=== PATIENT | male | born 1950 | race Caucasian/White ===

== ENCOUNTER → 2016-07-07 | Outpatient (CLI) | payer MEDICARE, OTHER ==
--- NOTE | 2016-07-07 12:07 | CTL ---
EXAMINATION TYPE: CT Low Dose Lung DATE OF EXAM ORDERED: 07/07/2016 11:09 AM HISTORY: Personal history tobacco use. Lung cancer screening CT DLP: [address] CTDI: 2.41 mGy Automated exposure control for dose reduction was used. SCREENING VISIT: 1 COMPARISON: None TECHNIQUE: Low dose computed tomography scan was performed through the chest at 1 mm thick sections a nd reconstructed images in the coronal plane at mm thick sections. CT DIAGNOSTIC QUALITY: Satisfactory FINDINGS: LUNG NODULES: Present, detailed below: There is in the right lung a nodule with a size of 4 mm. Nodule Size in Millimeters mm was visualized with Nodule Type: Semisolid that is Nodule state: New in nature on image # CT Image slide number [id number]. LUNGS: COPD: Severity: None Fibrosis: Severity: None Lymph nodes: None Other findings: There is bronchial wall thickening which is diffuse. RIGHT PLEURAL SPACE: Effusion: None Calcification: None Thickening: None Pneumothorax: None LEFT PLEURAL SPACE: Effusion: None Calcification: None Thickening: None Pneumothorax: None HEART: Heart Size: Normal Coronary calcification: Present Pericardial effusion: None OTHER FINDINGS: Upper abdomen: Unremarkable Bony thorax: Suspect some findings of diffuse idiopathic skeletal hyperostosis Supraclavicular region: Unremarkable Other: IMPRESSION: Nodular density in the right lung may represent focal scar rather than true pulmonary nod ule. FOLLOW UP CT CHEST RECOMMENDATION: 3-[address] LUNG RAD: 3, probably benign
== END | disposition home or self-care (01) ==
LOC: RADCTMAIN 10:35
PROVIDERS: ATTEND Family Medicine
DX: Z12.2 Encounter for screening for malignant neoplasm of respiratory organs (principal); R91.8 Other nonspecific abnormal finding of lung field; F17.200 Nicotine dependence, unspecified, uncomplicated

== ENCOUNTER → 2017-08-26 | Outpatient (CLI) | payer MEDICARE ==
[2017-08-26 12:22] LABS: Basophils # (A) 0.1 k/uL (0-0.2); Basophils % (A) 1 %; Eosinophils # (A) 0.4 k/uL (0-0.7); Eosinophils % (A) 5 %; HGB 14.6 gm/dL (13.0-17.5); Lymphocytes # (A) 2.2 k/uL (1.0-4.8); Lymphocytes % (A) 26 %; MCH 29.7 pg (25.0-35.0); MCHC 32.5 g/dL (31.0-37.0); MCV 91.3 fL (80.0-100.0); Mean Platelet Volume 8.8; Monocytes # (A) 0.7 k/uL (0-1.0); Monocytes % (A) 8 %; Neutrophils # (A) 4.9 k/uL (1.3-7.7); Neutrophils % (A) 59 %; Platelet Count 306 k/uL (150-450); RBC 4.92 m/uL (4.30-5.90); WBC 8.3 k/uL (3.8-10.6)
[2017-08-26 12:33] LABS: Anion Gap 10 mmol/L; Blood Urea Nitrogen 10 mg/dL (9-20); Calcium 9.9 mg/dL (8.4-10.2); Carbon Dioxide 27 mmol/L (22-30); Chloride 105 mmol/L (98-107); Cholesterol 158 mg/dL (<200); Glucose 135 mg/dL (74-99); HDL Cholesterol 39 mg/dL (40-60); LDL Cholesterol,Calculated 70 mg/dL (0-99); Potassium 4.7 mmol/L (3.5-5.1); Sodium 142 mmol/L (137-145); Triglycerides 245 mg/dL (<150)
[2017-08-26 12:41] LABS: T4, Free (Free Thyroxine) 1.14 ng/dL (0.78-2.19)
[2017-08-26 12:55] LABS: PSA Annual Screen 1.62 ng/mL (0.00-4.00)
[2017-08-26 16:19] LABS: ALT 41 U/L (21-72); AST 25 U/L (17-59); Albumin 4.4 g/dL (3.5-5.0); Alkaline Phosphatase 57 U/L (38-126); Bilirubin, Delta 0.3 mg/dL (0.0-0.2); Total Bilirubin 0.3 mg/dL (0.2-1.3); Total Protein 7.1 g/dL (6.3-8.2)
== END | disposition home or self-care (01) ==
LOC: LABWHC1 11:36
PROVIDERS: ATTEND Family Medicine
DX: Z00.00 Encounter for general adult medical examination without abnormal findings (principal); E78.00 Pure hypercholesterolemia, unspecified; Z79.899 Other long term (current) drug therapy
CPT/HCPCS: 84439; 80061; 80048; 80076; 84443; 85025; 36415; G0103

== ENCOUNTER → 2017-08-26 | Outpatient (CLI) | payer MEDICARE, OTHER ==
--- NOTE | 2017-08-26 11:08 | CTL ---
EXAMINATION TYPE: CT Low Dose Lung DATE OF EXAM ORDERED: 08/26/2017 COMPARISON: 07/07/2016 HISTORY: . Low Dose CT Lung Screening IV CONTRAST USED: None. SCREENING VISIT: First visit COMPARISON: None. TECHNIQUE: Low dose computed tomography scan was performed through the chest at 1 millimeter thick se ctions and reconstructed images in the coronal plane at [address] DIAGNOSTIC QUALITY: Satisfactory FINDINGS: LUNG NODULES: Not presentLeft lung: no nodules identified.Right lung: no nodules identified. Previou sly noted nodule is not reproduced. LUNGS: COPD: Severity: None Fibrosis: Severity:None Lymph nodes: None Other findings: None RIGHT PLEURAL SPACE: Effusion: None Calcification: None Thickening: None Pneumothorax: None LEFT PLEURAL SPACE: Effusion: None Calcification: None Thickening: None Pneumothorax: None HEART: Heart Size: Mildly enlarged Coronary calcification: Mild Pericardial effusion: None OTHER FINDINGS: Upper abdomen: No significant abnormality Bony thorax: Degenerative changes Supraclavicular region: No significant abnormalityOther: No significant abnormalityI IMPRESSION: Negative FOLLOW UP CT CHEST RECOMMENDATION: Follow-up screening in one year CT LUNG RAD: 1 LUNG RAD CATEGORY 1
== END | disposition home or self-care (01) ==
LOC: RADCTMAIN 06:51
PROVIDERS: ATTEND Family Medicine
DX: Z12.2 Encounter for screening for malignant neoplasm of respiratory organs (principal); Z87.891 Personal history of nicotine dependence

== ENCOUNTER → 2019-10-05 | Outpatient (CLI) | payer MEDICARE ==
--- NOTE | 2019-10-06 20:00 | ECHOF ---
Referral Reason:I10 Hypertension, R01.1 Murmur MEASUREMENTS -------- HEIGHT: 172.7 cm WEIGHT: 77.1 kg BP: IVSd: 1.3 cm (0.6 - 1.1) LVIDd: 5.1 cm (3.9 - 5.3) LVPWd: 0.7 cm (0.6 - 1.1) IVSs: 1.2 cm LVIDs: 4.0 cm LVPWs: 1.1 cm LA Diam: 3.3 cm (2.7 - 3.8) RVIDd: 3.1 cm (< 3.3) LAESV Index (A-L): 19.40 ml/m Ao Diam: 3.0 cm (2.0 - 3.7) EPSS: 1.2 cm MV E El: 0.46 m/s MV DecT: 211 ms MV A El: 0.81 m/s MV E/A Ratio: 0.56 AV maxP.35 mmHg AV meanP.68 mmHg RAP: 5.00 mmHg RVSP: 32.00 mmHg MV EF SLOPE: 75.23 mm/s (70 - 150) MV EXCURSION: 23.95 mm (> 18.000) FINDINGS -------- Sinus rhythm. This was a technically good study. The left ventricular size is normal. There is mild concentric left ventricular hypertrophy. Overa ll left ventricular systolic function is normal with, an EF between 55 - 60 %. The right ventricle is normal in size. The left atrial size is normal. Normal LA size by volume 22+/-6 ml/m2. The right atrial size is normal. There is mild aortic stenosis present. Peak/mean gradient across the Aortic Valve is 20.35mmHg / 10 .68mmHg. Mild mitral annular calcification present. Mild mitral regurgitation is present. Mild tricuspid regurgitation present. Right ventricular systolic pressure is normal at < 35 mmHg. There is no pulmonic regurgitation present. The aortic root size is normal. There is no pericardial effusion. CONCLUSIONS -------- 1. The left ventricular size is normal. 2. There is mild concentric left ventricular hypertrophy. 3. Overall left ventricular systolic function is normal with, an EF between 55 - 60 %. 4. The right ventricle is normal in size. 5. The left atrial size is normal. 6. The right atrial size is normal. 7. There is mild aortic stenosis present. 8. Peak/mean gradient across the Aortic Valve is 20.35mmHg / 10.68mmHg. 9. Mild mitral annular calcification present. 10. Mild mitral regurgitation is present. 11. Mild tricuspid regurgitation present. 12. Right ventricular systolic pressure is normal at < 35 mmHg. OFFICE CLERK ASSISTANT: Sylvia Glass RDCS
== END | disposition home or self-care (01) ==
LOC: RADECHMAIN 11:51
PROVIDERS: ATTEND Family Medicine
DX: I08.1 Rheumatic disorders of both mitral and tricuspid valves (principal); R01.1 Cardiac murmur, unspecified
CPT/HCPCS: 93306

== ENCOUNTER → 2020-11-30 | Outpatient (CLI) | payer MEDICARE ==
[2020-11-30 16:18] LABS: African American GFR (CKD) >90 (>60 ml/min/1.73 sqM); Blood Urea Nitrogen 12 mg/dL (9-20); Non-African American GFR(CKD) 80 (>60 ml/min/1.73 sqM)
--- NOTE | 2020-12-02 06:58 | CT ---
EXAMINATION TYPE: CT chest w con DATE OF EXAM: 11/30/2020 COMPARISON: Prior low-dose lung screening CT 2017 and 2017 HISTORY: Pulmonary nodule, pt not reporting any issues CT DLP: 322.80 mGycm. Automated Exposure Control for Dose Reduction was Utilized. TECHNIQUE: CT scan of the thorax is performed following with IV Contrast, patient injected with 100 mL of Isovue 300. FINDINGS: LUNGS: Background mild to moderate underlying emphysematous change is redemonstrated. New Lateral ri ght upper lobe nodule with some spiculated and irregular margins measuring 1.8 x 0.7 cm axial image 1 7 corresponding to coronal image 66 and sagittal image 30 warrants follow-up. Tiny central opacity or scarring central right lower lobe axial image 41 is stable. No pleural effusion or pneumothorax is s een bilaterally. MEDIASTINUM: There are no new greater than 1 cm hilar or mediastinal lymph nodes. No cardiomegaly o r pericardial effusion is seen. Coronary artery calcification in the RCA distribution is redemonstra sherin OTHER: Tiny dependent gallstone axial image 69. No adrenal masses. Spine is straightened on sagittal images. IMPRESSION: Confirmation of suspicious lateral 1.8 x 0.7 cm new Right upper lobe nodule. Advise PET C T to further evaluate.
== END | disposition home or self-care (01) ==
LOC: RADCTMAIN 15:19
PROVIDERS: ATTEND Family Medicine
DX: R91.1 Solitary pulmonary nodule (principal)
CPT/HCPCS: 82565; 84520; 71260; 36415; Q9967

== ENCOUNTER → 2020-12-28 | Outpatient (CLI) | payer MEDICARE ==
--- NOTE | 2021-01-01 15:53 | PE ---
Nuclear medicine PET/CT HISTORY: R 91.8, lung nodule, initial Patient received 8.5 mCi F-18 FDG intravenously and delayed scanning was performed from the skull bas e to the mid thighs. Localization and attenuation correction CT scan was performed. Correlation to CT chest 11/30/2020 Chest and neck: There is no cervical or supraclavicular adenopathy. No mediastinal, axillary, or arnulfo r adenopathy. The peripheral lung nodule right upper lobe with some spiculated margin, pleural extens ion show some associated hypermetabolic uptake, SUV is 2.2. There is no pleural or pericardial effusi on. Coronary artery calcifications are present. ABDOMEN: There is no evident liver uptake, no adrenal mass or retroperitoneal adenopathy. There is no ascites. Aorta is aneurysmal measuring 5.6 cm, there is a retroaortic left renal vein. Prostate is e nlarged and shows associated calcification. Osseous structures show no suspicious uptake. Uptake along the bowel is felt likely to be physiologic . IMPRESSION: Pulmonary nodule shows suspicious uptake. Abdominal aortic aneurysm is present. Abdominal aortic aneurysm.
== END | disposition home or self-care (01) ==
LOC: RADPETMAIN 12:45
PROVIDERS: ATTEND Internal Medicine Critical Care Medicine
DX: R91.8 Other nonspecific abnormal finding of lung field (principal)
CPT/HCPCS: 78815; A9552

== ENCOUNTER → 2021-01-10 | Outpatient (CLI) | payer MEDICARE ==
[2021-01-10 13:34] LABS: Basophils # (A) 0.1 k/uL (0-0.2); Basophils % (A) 1 %; Eosinophils # (A) 0.2 k/uL (0-0.7); Eosinophils % (A) 2 %; HCT 42.8 % (39.0-53.0); HGB 13.6 gm/dL (13.0-17.5); Lymphocytes % (A) 22 %; MCH 30.2 pg (25.0-35.0); MCHC 31.8 g/dL (31.0-37.0); MCV 94.7 fL (80.0-100.0); Mean Platelet Volume 8.4; Monocytes # (A) 0.5 k/uL (0-1.0); Monocytes % (A) 5 %; Neutrophils # (A) 6.4 k/uL (1.3-7.7); Neutrophils % (A) 69 %; Platelet Count 389 k/uL (150-450); RBC 4.52 m/uL (4.30-5.90); RDW 13.6 % (11.5-15.5); WBC 9.3 k/uL (3.8-10.6)
[2021-01-10 13:43] LABS: INR 0.9 (<1.2); Partial Thromboplastin Time 24.6 sec (22.0-30.0); Prothrombin Time 9.8 sec (9.0-12.0)
[2021-01-10 13:52] LABS: African American GFR (CKD) >90 (>60 ml/min/1.73 sqM); Anion Gap 8 mmol/L; Blood Urea Nitrogen 9 mg/dL (9-20); Carbon Dioxide 28 mmol/L (22-30); Chloride 105 mmol/L (98-107); Glucose 97 mg/dL (74-99); Magnesium 2.1 mg/dL (1.6-2.3); Non-African American GFR(CKD) 88 (>60 ml/min/1.73 sqM); Potassium 4.9 mmol/L (3.5-5.1); Sodium 141 mmol/L (137-145)
== END | disposition home or self-care (01) ==
LOC: LABPAT 12:15
PROVIDERS: ATTEND Thoracic Surgery (Cardiothoracic Vascular Surgery)
DX: Z01.812 Encounter for preprocedural laboratory examination (principal); R91.1 Solitary pulmonary nodule
CPT/HCPCS: 36415; 80051; 82565; 82947; 83735; 84520; 85025; 85610; 85730; 86850; 86900; 86901; 93005

== ENCOUNTER 2021-01-17 08:30 | Inpatient (IN) | payer MEDICARE ==
[2021-01-11 14:23] VITALS: BMI 25.8
[2021-01-17] MEDS ORDERED: LIDOCAINE 1% (10MG/ML) FOR IV START INTRADERMA PRN (11:29)
[2021-01-17] MEDS ORDERED: ONDANSETRON 4 MG/2 ML VIAL IVP ONE (11:29)
[2021-01-17] MEDS ORDERED: HYDROmorphone 0.5 MG/0.5 ML SYRINGE IVP PRN (11:29)
[2021-01-17] MEDS ORDERED: DEXAMETHASONE SOD PHOSPHATE 4 MG/ML 1 ML VIAL IV ONE (11:29)
[2021-01-17] MEDS: LACTATED RINGERS 1,000 ML IV SCH ×2 (11:37→12:00)
[2021-01-17 12:08] LABS: Glucose,Whole Blood 120 mg/dL (75-99)
[2021-01-17] MEDS ORDERED: MIDAZOLAM 2 MG/2 ML VIAL IVP ONE (13:00)
[2021-01-17] MEDS ORDERED: NEOSTIGMINE 1 MG/ML 10 ML VIAL ONE (13:46)
[2021-01-17] MEDS ORDERED: MIDAZOLAM 2 MG/2 ML VIAL ONE (13:46)
[2021-01-17] MEDS ORDERED: SUCCINYLCHOLINE CHLORIDE 100 MG/5 ML SYR IV ONE (13:46)
[2021-01-17] MEDS ORDERED: SODIUM CHLORIDE 0.9% (PF) 10 ML VIAL ONE (13:46)
[2021-01-17] MEDS ORDERED: ROPIVACAINE 5 MG/ML 30 ML VIAL ONE (13:46)
[2021-01-17] MEDS ORDERED: fentaNYL (PF) 50 MCG/ML 2 ML AMP ONE (13:46)
[2021-01-17] MEDS ORDERED: ROCURONIUM 10 MG/ML (5 ML VIAL) IV ONE (13:46)
[2021-01-17] MEDS ORDERED: PROPOFOL 10 MG/ML 20 ML VIAL IV ONE (13:46)
[2021-01-17] MEDS ORDERED: GLYCOPYRROLATE 0.2 MG/ML 2 ML VIAL ONE (13:46)
[2021-01-17] MEDS ORDERED: LIDOCAINE 1% INJ 10MG/ML (20 ML MDV) ONE (13:46)
[2021-01-17] MEDS ORDERED: BUPIVACAINE (PF) 0.5% 30 ML VIAL SQ ONE (13:51)
--- NOTE | 2021-01-17 14:34 | P.OP ---
Date of Procedure: 01/17/21 Preoperative Diagnosis: Right upper lobe mass Postoperative Diagnosis: Same Procedure(s) Performed: Right thoracoscopy with wedge resection right upper lobe mass Anesthesia: GETA Surgeon: Sergey Cuellar Feather Renovator #1: Davon Almodovar Estimated Blood Loss (ml): 5 IV fluids (ml): 200 Pathology: other (Right upper lobe mass for culture and pathology) Condition: stable Disposition: PACU Indications for Procedure: 70-year-old male with right upper lobe mass which has increased in size on serial examinations. Wedge resection was recommended for diagnosis and possible treatment. It was recognized if this proves to be malignant that the patient would likely need lobectomy. Options for management were discussed and the patient wanted wedge resection. Operative Findings: Firm 1.5 cm mass in the right upper lobe not involving the pleural surface grossly. Wedged out with grossly negative margins. Description of Procedure: Patient was brought to the operating room, placed supine on the operating table, anesthetized and intubated with a double-lumen endotracheal tube. Tube was positioned with fiberoptic bronchoscopy and secured. Patient was turned in left lateral decubitus position and appropriately positioned. Right chest was sterilely prepped and draped. 3 one-inch incisions were made in the right chest. The right lung was deflated. The lung was explored with gentle palpation with a ring forceps. The lesion was identified. It was grasped and a clamp was used to compress the lung beneath the lesion. Multiple firings of an Endo MAURICE stapler were used to resect the lesion.'s was placed in an Endo Catch bag and brought out onto the field. It was cut on the back table and a portion sent for culture the remainder for pathology. 28 Lyons Swedish chest tube was placed through the anterior incision and positioned posterior apically. It was secured with 0 Ethibond suture. Was connected to a Pleur-evac and the lung was inflated under thoracoscopic visualization. Incisions were closed with layers of Vicryl suture. Half percent Marcaine was used for local anesthesia in the region of the incisions. Dry sterile dressings were applied. Patient was extubated and transferred to recovery in stable condition.
[2021-01-17 15:11] LABS: Glucose,Whole Blood 98 mg/dL (75-99)
--- NOTE | 2021-01-17 16:02 | XR ---
EXAMINATION TYPE: XR chest 1V portable DATE OF EXAM: 01/17/2021 COMPARISON: NONE HISTORY: Posterior VATS TECHNIQUE: Single frontal view of the chest is obtained. FINDINGS: Right-sided chest tube. Heart size normal. Bilateral subsegmental consolidation. Soft tiss ue emphysema. Diffuse osteopenia and arthropathy of the shoulders. Could not exclude a nodule the rig ht upper lobe. IMPRESSION: Chest tube with no sizable pneumothorax and bilateral areas of atelectasis or infiltrate .
[2021-01-17] MEDS ORDERED: ONDANSETRON 4 MG/2 ML VIAL IVP PRN (16:28)
[2021-01-17] MEDS ORDERED: IPRATROPIUM-ALBUTEROL 3 ML NEB IH PRN (16:28)
[2021-01-17] MEDS ORDERED: ACETAMINOPHEN TAB 325 MG TAB PO PRN (16:28)
[2021-01-17 16:43] LABS: Glucose,Whole Blood 111 mg/dL (75-99)
[2021-01-17] MEDS: IPRATROPIUM-ALBUTEROL 3 ML NEB IH SCH ×2 (16:57→20:40)
[2021-01-17] MEDS: KETOROLAC 30 MG/ML 1 ML VIAL IVP SCH ×2 (18:25→23:00)
[2021-01-17] MEDS: HEPARIN SODIUM,PORCINE/PF 5,000 UNIT/0.5 ML SYRINGE SQ SCH ×2 (18:26→22:59)
[2021-01-17] MEDS: traMADol 50 MG TAB PO SCH ×2 (18:26→23:00)
[2021-01-17] MEDS: ATORVASTATIN 40 MG TAB PO SCH (20:12)
[2021-01-17] MEDS: lisinopriL 5 MG TAB PO SCH (20:12)
[2021-01-17] MEDS: FENOFIBRATE 160 MG TAB PO SCH (20:12)
[2021-01-17] MEDS: ASPIRIN 81 MG PO SCH (20:12)
[2021-01-17] MEDS: metFORMIN 500 MG TAB PO SCH (20:12)
[2021-01-17] MEDS: PIOGLITAZONE 30 MG TAB PO SCH (20:13)
[2021-01-17 20:59] LABS: Glucose,Whole Blood 267 mg/dL (75-99)
[2021-01-17] MEDS ORDERED: NON FORMULARY DRUG (Sitagliptin Phos/Metformin Hcl [Janumet 50-1,000 Mg Tablet] 1 EACH Tab PO SCH (21:00)
[2021-01-18] MEDS: traMADol 50 MG TAB PO SCH ×2 (05:16→12:28)
[2021-01-18] MEDS: KETOROLAC 30 MG/ML 1 ML VIAL IVP SCH ×4 (05:16→23:41)
[2021-01-18 05:54] LABS: Basophils % (A) 0 %; Eosinophils # (A) 0.1 k/uL (0-0.7); Eosinophils % (A) 1 %; HCT 37.2 % (39.0-53.0); HGB 11.9 gm/dL (13.0-17.5); Lymphocytes # (A) 1.9 k/uL (1.0-4.8); Lymphocytes % (A) 15 %; MCH 30.3 pg (25.0-35.0); MCHC 32.1 g/dL (31.0-37.0); MCV 94.3 fL (80.0-100.0); Mean Platelet Volume 8.7; Monocytes # (A) 0.7 k/uL (0-1.0); Monocytes % (A) 6 %; Neutrophils # (A) 9.8 k/uL (1.3-7.7); Neutrophils % (A) 77 %; Platelet Count 287 k/uL (150-450); RBC 3.94 m/uL (4.30-5.90); RDW 13.6 % (11.5-15.5); WBC 12.8 k/uL (3.8-10.6)
[2021-01-18] MEDS: PANTOPRAZOLE 40 MG TABLET PO SCH (06:14)
[2021-01-18 06:15] LABS: Calcium 9.1 mg/dL (8.4-10.2); Potassium 4.1 mmol/L (3.5-5.1)
[2021-01-18] MEDS: SODIUM CHLORIDE 0.9% 1,000 ML IV SCH ×2 (06:16→12:12)
[2021-01-18 06:44] LABS: Glucose,Whole Blood 135 mg/dL (75-99)
[2021-01-18] MEDS: IPRATROPIUM-ALBUTEROL 3 ML NEB IH SCH ×4 (08:03→19:54)
[2021-01-18] MEDS ORDERED: NON FORMULARY DRUG (Vitamin B Complex [Vitamin B Complex] 1 EACH Capsule) PO SCH (09:00)
[2021-01-18] MEDS: LINAGLIPTIN 5 MG TABLET PO SCH (09:53)
[2021-01-18] MEDS: HEPARIN SODIUM,PORCINE/PF 5,000 UNIT/0.5 ML SYRINGE SQ SCH ×3 (09:53→23:42)
[2021-01-18] MEDS: metFORMIN 500 MG TAB PO SCH ×2 (09:53→19:59)
--- NOTE | 2021-01-18 10:34 | XR ---
EXAMINATION TYPE: XR chest 1V DATE OF EXAM: 01/18/2021 COMPARISON: Chest x-ray 01/17/2021 HISTORY: Status post VATS TECHNIQUE: Single frontal view of the chest is obtained. FINDINGS: Right-sided chest tube remains in place. There is minimal apical right pneumothorax noted. There are overlying artifacts. Patchy densities are present in the bilateral lungs. Cardiac mediasti nal silhouette is stable. IMPRESSION: Postprocedural changes as described, minimal pneumothorax, atelectasis
--- NOTE | 2021-01-18 11:20 | P.PN ---
Subjective Progress Note Date: 01/18/21 Principal diagnosis: Right upper lobe lung mass. Past medical history significant for [id number] diabetes mellitus, hypertension, hyperlipidemia, mild COPD with a preoperative FEV1 83% of predicted value and remote history of smoking dependence which he quit 2 years prior. POD #1 Right thoracoscopy with wedge resection right upper lobe lung mass. The patient was seen in follow-up today 01/18/2021 at his bedside on the cardiac stepdown unit. Currently he is lying in bed, is awake, alert and oriented 3 and is in no acute distress. He denies any complaints of shortness of breath and is complaining of some surgical type pain to his chest tube insertion site r ating his pain 3-4 out of 10 on the pain scale. Oxygen saturation are 94% on room air and he is achieving 2000 mL on his incentive spirometry. Remote telemetry showing normal sinus rhythm with bundle branch block heart rate 70 ppm. Right pleural chest tube remains in place to water seal. No air leak is present. Ringing thin serosanguineous drainage with 70 mL output in the last 8 hours and 130 mL output since surgery. Chest x-ray this morning shows a trace right apical pneumothorax. The patient is complaining of some urinary retention this morning and has use the urinal twice with 180 mL output the first time and 100 mL the second time. A bladder scan postvoid residual was completed which showed around 400 mL of urine. Objective - Vital Signs Vital signs: Vital Signs Temp 98.1 F 01/18/21 04:00 Pulse 72 01/18/21 08:18 Resp 18 01/18/21 04:00 BP 100/93 01/18/21 04:00 Pulse Ox 93 L 01/18/21 04:00 Intake & Output 01/17/21 01/18/21 01/18/21 18:59 06:59 18:59 Intake Total 740 Output Total 5 70 180 Balance 735 -70 -180 Weight 78 kg 77.4 kg Intake: IV 500 Oral 240 Output: Chest Tube Drainage 70 Chest Tube 70 Urine 180 Estimated Blood Loss 5 Other: Voiding Method Toilet Urinal # Voids 1 - Exam CONSTITUTIONAL: Sitting up to the bedside chair on the cardiac stepdown unit, appears comfortable, cooperative, no apparent acute distress. HEENT: Neck is supple, no JVD, no lymphadenopathy. RESPIRATORY: Lungs sounds essentially clear throughout, diminished to his bilateral bases and with few scattered crackles to his right lower lobe. Respirations are symmetrical and nonlabored. Currently on room air with oxygen saturations 94%. Able to achieve 2000 mL on his incentive spirometry. Strong cough. CARDIOVASCULAR: Regular rhythm and rate. S1 and S2 present, negative for S3, gallop or murmur. Palpable peripheral pulses bilaterally, no edema to his bilat eral lower extremities. No calf pain or tenderness noted. Knee-high sequential compression devices in place to his bilateral lower extremities. GASTROINTESTINAL: Abdomen soft, nontender, nondistended. Active bowel sounds present 4 quadrants. Tolerating diet. Passing flatus. No guarding or ri gidity. GENITOURINARY: 280 mL urine output in the last 8 hours. INTEGUMENTARY: Skin is warm and dry with no evidence of clubbing or cyanosis. Right chest thoracoscopy incisions clean, dry and approximated. No drainage or redness present. NEUROLOGIC: Cranial nerves II through XII intact. No focal deficits. MUSKULOSKELETAL: Able to move all extremities, strength equal bilaterally. PSYCHIATRIC: Alert and oriented to person place and time, appropriate affect, intact judgment and insight. INVASIVE LINES AND TUBES: Right pleural chest tube remains in place to water seal. No air leak is present. Draining thin serosanguineous drainage with 70 mL output last 8 hours and 130 mL output since surgery. - Allied health notes Allied health notes reviewed: nursing - Labs CBC & Chem 7: 01/18/21 05:43 01/18/21 05:43 Labs: Abnormal Lab Results - Last 24 Hours (Table) 01/17/21 01/17/21 01/17/21 Range/Units 12:01 16:25 20:29 WBC (3.8-10.6) k/uL RBC (4.30-5.90) m/uL Hgb (13.0-17.5) gm/dL Hct (39.0-53.0) % Neutrophils # (1.3-7.7) k/uL Sodium (137-145) mmol/L Glucose (74-99) mg/dL POC Glucose (mg/dL) 120 H 111 H 267 H (75-99) mg/dL 01/18/21 01/18/21 01/18/21 Range/Units 05:43 05:43 06:20 WBC 12.8 H (3.8-10.6) k/uL RBC 3.94 L (4.30-5.90) m/uL Hgb 11.9 L (13.0-17.5) gm/dL Hct 37.2 L (39.0-53.0) % Neutrophils # 9.8 H (1.3-7.7) k/uL Sodium 136 L (137-145) mmol/L Glucose 140 H (74-99) mg/dL POC Glucose (mg/dL) 135 H (75-99) mg/dL Microbiology - Last 24 Hours (Table) 01/17/21 14:30 Anaerobic Culture - Preliminary Lung - Right 01/17/21 14:30 Tissue Culture - Preliminary Lung - Right 01/17/21 14:30 Fungal Culture - Preliminary Lung - Right 01/17/21 14:30 Acid Fast Bacilli Culture - Preliminary Lung - Right - Imaging and Cardiology Chest x-ray: report reviewed, image reviewed Assessment and Plan Assessment: 1. Right upper lobe lung mass, status post right thoracoscopy wedge resection 2. Mild COPD with a preoperative FEV1 83% of predicted value 3. History of hypertension 4. History of hyperlipidemia 5. Ege-nhlfnyt-zglothmry diabetes mellitus 6. Remote history of tobacco dependence, smoking around 2 years ago Plan: 1. We will remove his right pleural chest tube today. 2. Encourage use of his incentive spirometry 10 times every hour while awake. 3. Encourage ambulation. Out of bed for all meals. 4. The bladder scan and straight cath for greater than 300 mL of postvoid residual. 5. Pain control per current when necessary orders. 6. Anticipate discharge home within the next 24 hours. 7. Pathology results remain pending, will continue to follow as an outpatient. 8. More recommendations to follow based on patient's clinical course. Time with Patient: Greater than 30
[2021-01-18 11:59] LABS: Glucose,Whole Blood 123 mg/dL (75-99)
--- NOTE | 2021-01-18 12:12 | P.CNPUL ---
History of Present Illness Consult date: 01/18/21 Requesting physician: Sergey Cuellar Reason for consult: other (Status post wedge resection of right upper lobe.) Chief complaint: Pulmonary nodule History of present illness: This is a 70-year-old white male, long-standing smoking history, quit smoking 2 years ago. Patient is at least 100 pack year smoker, patient was undergoing serial screening scans of the chest on outpatient basis, CT of the chest on November 30 and a PET scan of the chest on December 28 showed a 1.80.8 nodule in the right upper lobe. It was noted to be peripheral, PET scan demonstrated mild uptake at this area. There was no evidence of lymphadenopathy, and this was relatively new nodule. His PFT preoperatively showed FEV1 of 2.49 which is 83% of predicted, and his DLCO was 97% of the predicted. Patient underwent wedge resection of the right upper lobe nodule, the feeling that the patient most likely has bronchogenic carcinoma. This was done yesterday, the surgery was uneventful, postoperatively patient is on the medical floor, he has a right- sided chest tube in place, and the patient seems to be doing quite well. Chest x-ray this morning showed a minimal right apical pneumothorax. No air leak noted in the chest tube. CBC today is relatively normal lites are normal renal profile is normal. Review of Systems Constitutional: Negative HEENT: Negative Pulmonary: Negative Cardiac: Negative GI: Negative Genitourinary: Negative Hematologic: Negative Neurologic: Negative Endocrine: Neg Psychiatric: Negative skin: Negative Past Medical History Past Medical History: Diabetes Mellitus, Hyperlipidemia, Hypertension, Vascular Disorder Additional Past Medical History / Comment(s): gets leg pain if walks too far or too fast, lung nodule History of Any Multi-Drug Resistant Organisms: None Reported Past Surgical History: Appendectomy, Hernia Repair, Orthopedic Surgery, Tonsillectomy Additional Past Surgical History / Comment(s): RIGHT HAND SURGERY Past Anesthesia/Blood Transfusion Reactions: No Reported Reaction Smoking Status: Former smoker - Past Family History Brother(s) Family Medical History: Deep Vein Thrombosis (DVT) Medications and Allergies Home Medications Medication Instructions Recorded Confirmed Type Aspirin 81 mg PO HS 11/12/15 01/17/21 History Atorvastatin [Lipitor] 40 mg PO HS 11/12/15 01/17/21 History lisinopriL [Zestril] 5 mg PO HS 11/12/15 01/17/21 History Fenofibrate 160 mg PO HS 01/11/21 01/17/21 History Pioglitazone [Actos] 30 mg PO HS 01/11/21 01/17/21 History sitaGLIPtin PHOS/metFORMIN HCL 1 each PO BID 01/11/21 01/17/21 History [Janumet 50-1,000 mg Tablet] Vitamin B Complex 1 each PO DAILY 01/17/21 01/17/21 History Allergies Allergy/AdvReac Type Severity Reaction Status Date / Time No Known Allergies Allergy Verified 01/17/21 11:36 Physical Exam Vitals: Vital Signs Temp Pulse Pulse Pulse Resp BP BP 01/18/21 11:42 72 01/18/21 11:30 72 01/18/21 08:18 72 01/18/21 08:04 72 01/18/21 04:00 98.1 F 63 18 01/17/21 23:19 99.2 F 95 18 01/17/21 20:54 70 01/17/21 20:42 70 01/17/21 20:00 99.2 F 94 18 01/17/21 17:09 68 01/17/21 16:58 68 01/17/21 15:40 64 18 01/17/21 15:25 66 16 01/17/21 15:10 65 16 153/74 01/17/21 14:55 63 16 155/71 01/17/21 14:40 96.8 F L 77 14 184/80 01/17/21 13:07 58 L 18 BP Pulse Ox 01/18/21 11:42 01/18/21 11:30 01/18/21 08:18 01/18/21 08:04 01/18/21 04:00 100/93 93 L 01/17/21 23:19 110/61 95 01/17/21 20:54 01/17/21 20:42 01/17/21 20:00 127/60 96 01/17/21 17:09 01/17/21 16:58 01/17/21 15:40 98 01/17/21 15:25 143/78 97 01/17/21 15:10 100 01/17/21 14:55 100 01/17/21 14:40 100 01/17/21 13:07 138/63 98 Intake and Output 01/17/21 01/18/21 01/18/21 22:59 06:59 14:59 Intake Total 290 Output Total 70 380 Balance 290 -70 -380 Intake: IV 50 Oral 240 Output: Chest Tube Drainage 70 Chest Tube 70 Urine 380 Other: Voiding Method Toilet Toilet Urinal Urinal # Voids 3 Weight 77.4 kg Physical Exam: Revealed 70-year-old white male extremely pleasant, in no distress, on 2 L nasal cannula. HEENT:[Neck is supple.] [No neck masses.] [No thyromegaly.] [No JVD.] Chest: [Clear throughout, no crackles, no rhonchi, no wheezes.] Right-sided chest tube is noted. No air leak noted. Cardiac Exam: [Normal S1 and S2, no S3 gallop, no murmur.] Abdomen: [Soft, nontender, no megaly, no rebound, no guarding, normal bowel sounds.] Extremities: [No clubbing, no edema, no cyanosis.] Neurological Exam: [No focal neurologic deficit.] Alert oriented 3. Psychiatric: Normal mood, affect and normal mental status examination. Skin: No rashes Results - Laboratory Findings CBC and BMP: 01/18/21 05:43 01/18/21 05:43 Abnormal lab findings: Abnormal Labs 01/17/21 01/17/21 01/17/21 12:01 16:25 20:29 WBC RBC Hgb Hct Neutrophils # Sodium Glucose POC Glucose (mg/dL) 120 H 111 H 267 H 01/18/21 01/18/21 01/18/21 05:43 05:43 06:20 WBC 12.8 H RBC 3.94 L Hgb 11.9 L Hct 37.2 L Neutrophils # 9.8 H Sodium 136 L Glucose 140 H POC Glucose (mg/dL) 135 H 01/18/21 11:57 WBC RBC Hgb Hct Neutrophils # Sodium Glucose POC Glucose (mg/dL) 123 H - Diagnostic Findings Chest x-ray: image reviewed (As noted in HPI.) Assessment and Plan Assessment: Impression: Status post right upper lobe wedge resection for presumptive right upper lobe nodule possibly malignant. Mild COPD Postoperative minimal right-sided pneumothorax, expected. Benign essential hypertension. Type 2 diabetes without complications. [id number] smoking history/ex-smoker. Recommendation: Continue present supportive care measures Continue incentive spirometer. Possible chest tube removal today. Ambulate patient. Pain control. Possible discharge planning in the next 24 hours. Pathology from the nodule is pending and this will be addressed with the patient on outpatient basis. Time with Patient: Greater than 30
--- NOTE | 2021-01-18 14:57 | XR ---
EXAMINATION TYPE: XR chest 1V portable DATE OF EXAM: 01/18/2021 COMPARISON: Prior chest x-ray same date at earlier time HISTORY: Status post chest tube removal, postop TECHNIQUE: Single frontal view of the chest is obtained. FINDINGS: Right apical pneumothorax has slightly increased in size. Right-sided chest tube has been removed. No other interval change. IMPRESSION: Interval chest tube removal as described.
[2021-01-18] MEDS: TAMSULOSIN 0.4 MG CAP.ER.24H PO SCH (15:28)
[2021-01-18 17:14] LABS: Glucose,Whole Blood 134 mg/dL (75-99)
[2021-01-18] MEDS: PIOGLITAZONE 30 MG TAB PO SCH (19:59)
[2021-01-18] MEDS: FENOFIBRATE 160 MG TAB PO SCH (19:59)
[2021-01-18] MEDS: ASPIRIN 81 MG PO SCH (19:59)
[2021-01-18] MEDS: lisinopriL 5 MG TAB PO SCH (19:59)
[2021-01-18] MEDS: ATORVASTATIN 40 MG TAB PO SCH (19:59)
[2021-01-18 20:16] LABS: Glucose,Whole Blood 215 mg/dL (75-99)
[2021-01-19] MEDS: KETOROLAC 30 MG/ML 1 ML VIAL IVP SCH ×2 (06:19→14:16)
[2021-01-19] MEDS: PANTOPRAZOLE 40 MG TABLET PO SCH (06:19)
[2021-01-19 06:46] LABS: Glucose,Whole Blood 135 mg/dL (75-99)
[2021-01-19] MEDS: IPRATROPIUM-ALBUTEROL 3 ML NEB IH SCH ×2 (08:02→11:26)
[2021-01-19 08:05] VITALS: RESP 18
--- NOTE | 2021-01-19 08:29 | XR ---
EXAMINATION TYPE: XR chest 2V DATE OF EXAM: 01/19/2021 COMPARISON: 01/18/2021 HISTORY: 70-year-old male post right thorascopic wedge resection TECHNIQUE: PA and lateral views FINDINGS: Heart normal size. Patchy interstitial opacities are redemonstrated bilaterally. There is a small rig ht upper lung pneumothorax redemonstrated currently slightly larger 2.6 cm 1.6 cm, previously. No ple ural effusion. IMPRESSION: 1. Continued small right upper lung pneumothorax though increased in size, currently measuring 2.6 cm versus 1.6 cm, previously. 2. Patchy bilateral interstitial infiltrates are similar.
[2021-01-19 08:39] LABS: HCT 31.7 % (39.0-53.0); HGB 10.9 gm/dL (13.0-17.5); MCH 31.7 pg (25.0-35.0); MCHC 34.4 g/dL (31.0-37.0); MCV 92.3 fL (80.0-100.0); Mean Platelet Volume 8.7; Platelet Count 265 k/uL (150-450); RBC 3.44 m/uL (4.30-5.90); RDW 13.5 % (11.5-15.5); WBC 10.2 k/uL (3.8-10.6)
[2021-01-19 08:52] LABS: African American GFR (CKD) >90 (>60 ml/min/1.73 sqM); Anion Gap 8 mmol/L; Blood Urea Nitrogen 12 mg/dL (9-20); Calcium 9.3 mg/dL (8.4-10.2); Carbon Dioxide 23 mmol/L (22-30); Chloride 100 mmol/L (98-107); Glucose 207 mg/dL (74-99); Non-African American GFR(CKD) 81 (>60 ml/min/1.73 sqM); Potassium 4.1 mmol/L (3.5-5.1); Sodium 131 mmol/L (137-145)
[2021-01-19] MEDS: TAMSULOSIN 0.4 MG CAP.ER.24H PO SCH (10:24)
[2021-01-19] MEDS: metFORMIN 500 MG TAB PO SCH (10:24)
[2021-01-19] MEDS: HEPARIN SODIUM,PORCINE/PF 5,000 UNIT/0.5 ML SYRINGE SQ SCH (10:25)
[2021-01-19] MEDS: LINAGLIPTIN 5 MG TABLET PO SCH (10:25)
--- NOTE | 2021-01-19 10:40 | P.DS ---
Providers Date of admission: 01/17/21 11:16 Expected date of discharge: 01/19/21 Attending physician: Sergey Cuellar Consults: 01/17/21 16:28 Consult Physician Routine Consulting Provider: Angeles Randolph Consult Reason/Comments: post vats; delmar patient Do you want consulting provider notified?: Yes Primary care physician: Peterson Scott Hospital Course: FINAL DIAGNOSIS: 1. Right upper lobe lung mass, status post right thoracoscopy wedge resection 2. Mild COPD with a preoperative FEV1 83% of predicted value 3. Essential hypertension 4. History of hyperlipidemia 5. Vly-wyalbdo-[id number] diabetes mellitus 6. Remote history of tobacco dependence, smoking around 2 years ago PRINCIPAL PROCEDURE 1. Right thoracoscopy with wedge resection right upper lobe lung mass. HISTORY OF PRESENT ILLNESS: This is a 70-year-old gentleman who follows on an outpatient basis with Dr. Peterson Scott for his primary care and with Dr. Banks for his pulmonary care. The patient has a history of smoking which he quit around 2 years ago, although prior to that he did smoke 1-3 packs per day for over 50 years. He underwent serial screening CT scans due to his history of smoking. The patient underwent a low-dose computed tomography scan of the chest in July 2017 which demonstrated no nodules identified. On 11/30/2020 he underwent a computed tomography scan of his chest with contrast which showed confirmation of a suspicious lateral 1.8 x 0.7 cm right upper lobe nodule. Due to the findings of the right upper lobe nodule it was recommended that the patient undergo a PET/computed tomography scan which was completed on 12/28/2020 which showed a pulmonary nodule shows suspicious mild uptake with an SUV of 2.2. The PET computed tomography scan also showed an abdominal aortic aneurysm measuring 5.6 cm. Subsequently, due to the above-mentioned findings Dr. Banks referred the patient to Dr. Sergey Cuellar from cardiothoracic surgery for further evaluation and treatment recommendations. Dr. Cuellar met with the patient, discussed the findings on the above mentioned studies, discussed treatment options including a right thoracoscopy with wedge resection right upper lobe lung mass. Knowing and understanding the risks and benefits of the treatment options the patient wished to proceed with a right thoracoscopy with wedge resection right upper lobe lung mass. HOSPITAL COURSE: The patient was brought to the hospital on 01/17/2021, taken to the preoperative area, prepared in the usual fashion and subsequently taken to the operating room where Dr. Sergey Cuellar performed a right thoracoscopy with wedge resection right upper lobe lung mass. Upon completion of the surgery the patient was extubated and taken to the recovery room for further monitoring. He was eventually admitted to the cardiac stepdown unit for further monitoring and rehabilitation. His oxygen was titrated down, he was ambulating in the hallway without difficulty, he was tolerating oral diet, his pain was well controlled, his chest tube was removed on postoperative day #1 and he was ready to be discharged home on postoperative day #2. He has received written and verbal instructions regarding his medications, activity restrictions, signs and symptoms requiring physician O notification and his follow-up appointment. Plan - Discharge Summary Discharge Rx Participant: Yes New Discharge Prescriptions: New Tamsulosin [Flomax] 0.4 mg PO PC-BRKFST #30 capsule Acetaminophen Tab [Tylenol] 650 mg PO Q4HR PRN tab PRN Reason: Fever And/ Or Pain Continue lisinopriL [Zestril] 5 mg PO HS Aspirin 81 mg PO HS Atorvastatin [Lipitor] 40 mg PO HS sitaGLIPtin PHOS/metFORMIN HCL [Janumet 50-1,000 mg Tablet] 1 each PO BID Fenofibrate 160 mg PO HS Vitamin B Complex 1 each PO DAILY Pioglitazone [Actos] 30 mg PO HS Discharge Medication List Aspirin 81 mg PO HS 11/12/15 [History] Atorvastatin [Lipitor] 40 mg PO HS 11/12/15 [History] lisinopriL [Zestril] 5 mg PO HS 11/12/15 [History] Fenofibrate 160 mg PO HS 01/11/21 [History] Pioglitazone [Actos] 30 mg PO HS 01/11/21 [History] sitaGLIPtin PHOS/metFORMIN HCL [Janumet 50-1,000 mg Tablet] 1 each PO BID 01/11/21 [History] Vitamin B Complex 1 each PO DAILY 01/17/21 [History] Acetaminophen Tab [Tylenol] 650 mg PO Q4HR PRN tab 01/19/21 [Rx] Tamsulosin [Flomax] 0.4 mg PO PC-BRKFST #30 capsule 01/19/21 [Rx] Follow up Appointment(s)/Referral(s): Hawa Wick NPC [Nurse Practitioner] - 01/30/21 3:30 pm Sergey Cuellar MD [STAFF PHYSICIAN] - 02/07/21 1:30 pm Peterson Scott MD [Primary Care Provider] - 01/21/21 1:30 pm Ambulatory/Diagnostic Orders: XR chest 2V [RAD.AMB] Time Frame: 01/14/21, Facility: [facility], Location: [facility] XR chest 2V [RAD.AMB] Time Frame: 01/21/21, Facility: [facility], Location: [facility] Activity/Diet/Wound Care/Special Instructions: DISCHARGE INSTRUCTIONS: 1. No driving for 2 weeks, or until physician gives their ok. 2. No lifting, pushing, or pulling more than 10 pounds for 2 weeks. The physician will advise of any restriction changes. 3. Continue pain control per as needed orders. Alternate acetaminophen (Tylenol) and ibuprofen (Motrin/Advil) for pain. 4. Continue with incentive spirometry and splinting until otherwise directed by the physician. 5. May remove his right chest dressing where his chest tube was inserted on 01/20/2021 6. Routine incision care. No powders, lotions, ointments on incisions. 7. Please call surgeon/BEHAVIORAL SCIENTIST for temp greater than 101 F or purulent drainage from incisions. Any questions or concerns please call directory operator Sarah @ or Eric @ Discharge Disposition: HOME SELF-CARE
[2021-01-19 12:00] LABS: Glucose,Whole Blood 195 mg/dL (75-99)
--- NOTE | 2021-01-19 12:28 | P.PN ---
Subjective Progress Note Date: 01/19/21 Principal diagnosis: Status post wedge resection for right upper lobe nodule, postoperative the pneumothorax, expected. This is a 70-year-old white male, long-standing smoking history, quit smoking 2 years ago. Patient is at least 100 pack year smoker, patient was undergoing s erial screening scans of the chest on outpatient basis, CT of the chest on November 30 and a PET scan of the chest on December 28 showed a 1.80.8 nodule in the right upper lobe. It was noted to be peripheral, PET scan demonstrated mild uptake at this area. There was no evidence of lymphadenopathy, and this was relatively new nodule. His PFT preoperatively showed FEV1 of 2.49 which is 83% of predicted, and his DLCO was 97% of the predicted. Patient underwent wedge resection of the right upper lobe nodule, the feeling that the patient most likely has bronchogenic carcinoma. This was done yesterday, the surgery was uneventful, postoperatively patient is on the medical floor, he has a right-s ided chest tube in place, and the patient seems to be doing quite well. Chest x-ray this morning showed a minimal right apical pneumothorax. No air leak noted in the chest tube. CBC today is relatively normal lites are normal renal profile is normal. Reevaluated today on 01/19/21, patient is feeling great, asymptomatic, chest x- ray continues to show evidence of 10-15% right-sided pneumothorax. Not much government gauger the last 24 hours. Patient is asymptomatic, he is doing great. Thoracic surgery is planning to discharge the patient home, and I believe since the patient has no symptoms, and no plans for intervention regarding his right- sided pneumothorax, I believe the patient could go home and follow up on outpatient basis. Objective - Vital Signs Vital signs: Vital Signs Temp 98.5 F 01/19/21 03:37 Pulse 78 01/19/21 08:04 Resp 18 01/19/21 08:04 BP 111/55 01/19/21 03:37 Pulse Ox 95 01/19/21 08:04 Intake & Output 01/18/21 01/19/21 01/19/21 18:59 06:59 18:59 Intake Total 596 240 Output Total 883 1200 Balance -287 -1200 240 Weight 77 kg Intake: Oral 596 240 Output: Urine 683 1200 Post Void Residual 200 Other: Voiding Method Toilet Toilet Urinal Urinal # Voids 800 # Bowel Movements 0 - Exam Physical Exam: Revealed 70-year-old white male extremely pleasant, in no distress, on room air HEENT:[Neck is supple.] [No neck masses.] [No thyromegaly.] [No JVD.] Chest: [Clear throughout, no crackles, no rhonchi, no wheezes.] Chest tube has been removed Cardiac Exam: [Normal S1 and S2, no S3 gallop, no murmur.] Abdomen: [Soft, nontender, no megaly, no rebound, no guarding, normal bowel sounds.] Extremities: [No clubbing, no edema, no cyanosis.] Neurological Exam: [No focal neurologic deficit.] Alert oriented 3. Psychiatric: Normal mood, affect and normal mental status examination. Skin: No rashes - Labs CBC & Chem 7: 01/19/21 08:03 01/19/21 08:03 Labs: Abnormal Lab Results - Last 24 Hours (Table) 01/18/21 01/18/21 01/19/21 Range/Units 16:53 19:56 06:17 RBC (4.30-5.90) m/uL Hgb (13.0-17.5) gm/dL Hct (39.0-53.0) % Sodium (137-145) mmol/L Glucose (74-99) mg/dL POC Glucose (mg/dL) 134 H 215 H 135 H (75-99) mg/dL 01/19/21 01/19/21 01/19/21 Range/Units 08:03 08:03 11:58 RBC 3.44 L (4.30-5.90) m/uL Hgb 10.9 L (13.0-17.5) gm/dL Hct 31.7 L (39.0-53.0) % Sodium 131 L (137-145) mmol/L Glucose 207 H (74-99) mg/dL POC Glucose (mg/dL) 195 H (75-99) mg/dL Microbiology - Last 24 Hours (Table) 01/17/21 14:30 Acid Fast Bacilli Smear - Final Lung - Right Acid Fast Bacilli Culture - Preliminary Assessment and Plan Assessment: Impression: Status post right upper lobe wedge resection for presumptive right upper lobe nodule possibly malignant. Mild COPD Postoperative minimal right-sided pneumothorax, expected. Benign essential hypertension. Type 2 diabetes without complications. [id number] smoking history/ex-smoker. Recommendation: Clear to be discharged home today. Follow-up on outpatient basis in our office and with thoracic surgery sometime next week. Discussed his condition with thoracic surgery on the case. Time with Patient: Less than 30
[2021-01-19 16:01] VITALS: TEMP 98
[2021-01-19 16:02] VITALS: BP 130/64; PULSE 92
== END 2021-01-19 14:55 | disposition home or self-care (01) | DRG 165 ==
LOC: 2ORMAIN 11:16 → 3SCARD 15:22
PROVIDERS: ADMIT Thoracic Surgery (Cardiothoracic Vascular Surgery); ATTEND Thoracic Surgery (Cardiothoracic Vascular Surgery)
PROC: 0BBC4ZZ Excision of Right Upper Lung Lobe, Percutaneous Endoscopic Approach (ICD-10-PCS; principal; 2021-01-17 13:00)
DX: C34.11 Malignant neoplasm of upper lobe, right bronchus or lung (principal); E11.9 Type 2 diabetes mellitus without complications; E78.5 Hyperlipidemia, unspecified; I10 Essential (primary) hypertension; I71.4 Abdominal aortic aneurysm, without rupture; J44.9 Chronic obstructive pulmonary disease, unspecified; Z79.82 Long term (current) use of aspirin; Z79.84 Long term (current) use of oral hypoglycemic drugs; Z79.899 Other long term (current) drug therapy; Z87.891 Personal history of nicotine dependence; Z20.822 Contact with and (suspected) exposure to COVID-19
CPT/HCPCS: 36415; 64999; 71045; 71046; 80048; 85025; 85027; 86850; 86900; 86901; 87070; 87075; 87102; 87116; 87205; 87206; 87635; 94640; 94760

== ENCOUNTER → 2021-01-21 | Outpatient (CLI) | payer MEDICARE ==
--- NOTE | 2021-01-21 15:11 | XR ---
EXAMINATION TYPE: XR chest 2V DATE OF EXAM: 01/21/2021 COMPARISON: Chest x-ray 01/19/2021 HISTORY: Pneumothorax, postop TECHNIQUE: Frontal and lateral views of the chest are obtained. FINDINGS: Small right apical pneumothorax shows a similar appearance. There is no evident pleural effusion. Some pleural thickening noted along the right lateral chest mar gin inferiorly. Cardiac mediastinal silhouette is stable. Apical density may be related to prior surg aaron. IMPRESSION: Stable pneumothorax, postoperative changes.
== END | disposition home or self-care (01) ==
LOC: RADXRMAIN 14:20
PROVIDERS: ATTEND Nurse Practitioner Family
DX: Z09 Encounter for follow-up examination after completed treatment for conditions other than malignant neoplasm (principal); Z53.32 Thoracoscopic surgical procedure converted to open procedure
CPT/HCPCS: 71046

== ENCOUNTER → 2021-01-31 | Outpatient (CLI) | payer MEDICARE ==
--- NOTE | 2021-01-31 09:03 | XR ---
EXAMINATION TYPE: XR chest 2V DATE OF EXAM: 01/31/2021 COMPARISON: Chest x-ray January 21, 2021 HISTORY: Wedge resection right upper lobe progress study. TECHNIQUE: Frontal and lateral views of the chest are obtained. FINDINGS: There is focal nodularity presumed round atelectasis or scarring with right apical pneumot horax smaller in size from prior x-ray. Lungs remain clear. No mediastinal shift. The cardiac silhoue tte size is within normal limits. Multilevel spurring thoracic spine redemonstrated. IMPRESSION: Diminishing size right apical pneumothorax.
== END | disposition home or self-care (01) ==
LOC: RADXRMAIN 08:40
PROVIDERS: ATTEND Thoracic Surgery (Cardiothoracic Vascular Surgery)
DX: C34.11 Malignant neoplasm of upper lobe, right bronchus or lung (principal); J93.9 Pneumothorax, unspecified
CPT/HCPCS: 71046